=== PATIENT | male | born 1950 | race Caucasian/White ===

== ENCOUNTER → 2017-06-17 | Outpatient (CLI) | payer OTHER ==
--- NOTE | 2017-06-17 17:16 | PCVCIMAG ---
APPROVED REPORT Study performed: 06/17/2017 10:44:24 EXAM: Comprehensive 2D, Doppler, and color-flow Echocardiogram Patient Location: Echo lab Status: routine Other Information Study Quality: Adequate Indications Pre-Chemo CAD Aortic Stenosis. Hypertension, Dyspnea, CABG, 2D Dimensions IVSd: 7.96 (7-11mm)LVOT Diam: 20.49 (18-24mm) LVDd: 56.64 mm PWd: 7.91 (7-11mm) LVDs: 36.68 (25-40mm) Left Atrium: 35.01 (27-40mm) Aortic Root: 25.11 mm LV Single Plane 4CH: 63.63 % LV Single Plane 2CH: 64.85 %Nova's LVEF: 64.24 % Biplane EF: 64.5 % Volumes Left Atrial Volume (Systole) Single Plane 4CH: 80.76 mLSingle Plane 2CH: 67.42 mL LA ESV Index: 38.00 mL/m2 Aortic Valve AoV Peak Leighton.: 4.33 m/s AO Peak Gr.: 81.63 mmHgLVOT Max P.60 mmHg AO Mean Gr.: 40.80 mmHgLVOT Mean P.38 mmHg AO V2 Mean: 3.03 m/sLVOT Max V: 1.29 m/s AO V2 VTI: 112.93 cmLVOT Mean V: 0.86 m/s LORENZO (VTI): 1.02 [id number] V1 VTI: 34.95 cm LORENZO Vmax: 0.98 cm2 AI Vmax: 4.72 m/sSV (LVOT): 115.18 mL AI [place]: 3.84 m/s2 AI PHT: 360.71 ms Mitral Valve E/A Ratio: 1.2 MV Decel. Time: 308.75 ms MV E Max Leighton.: 1.11 m/s MV A Leighton.: 0.93 m/s IVRT: 96.89 ms Pulmonary Valve PV Peak Leighton.: 0.94 m/sPV Peak Gr.: 3.53 mmHg Pulmonary Vein P Vein S: 0.58 m/sP Vein A: 0.31 m/s P Vein D: 0.63 m/sP Vein A Dur.: 179.9 msec P Vein S/D Ratio: 0.92 Tricuspid Valve TV Vmax: 0.80 m/s Left Ventricle Left ventricle is at the upper limits of normal. There is normal LV segmental wall motion. There is normal left ventricular wall thickness. Left ventricular systolic function is normal. The left ventricular ejection fraction is within the normal range. LVEF is 65%. The left ventricular diastolic function is normal. Right Ventricle The right ventricle is normal size. The right ventricular systolic function is normal. Atria The left atrium size is normal. The right atrium size is normal. Aortic Valve Aortic valve is trileaflet. Moderate aortic regurgitation. Severe aortic stenosis. Peak aortic valve gradient is 74mmHg and the mean gradient is 41mmHg. Calculated LORENZO by the continuity equation is _0.8-0.9cm2 Mitral Valve The mitral valve is normal in structure. Moderate mitral regurgitation. No evidence of mitral valve stenosis. Tricuspid Valve The tricuspid valve is normal in structure. Trace tricuspid regurgitation. Pulmonic Valve The pulmonary valve is normal in structure. There is no pulmonic valvular regurgitation. Great Vessels The aortic root is normal in size. The ascending aorta is normal in size. IVC is normal in size and collapses with >50% inspiration Pericardium There is no pericardial effusion. There is no pleural effusion. <Conclusion> Left ventricle is at the upper limits of normal. There is normal left ventricular wall thickness. LVEF is 65%. The left ventricular diastolic function is normal. The right ventricle is normal size. Severe aortic stenosis. Peak aortic valve gradient is 74mmHg and the mean gradient is 41mmHg. Calculated LORENZO by the continuity equation is _0.8-0.9cm2 Moderate mitral regurgitation. Trace tricuspid regurgitation. There is no pericardial effusion.
== END | disposition home or self-care (01) ==
LOC: PCVCIMAG 10:35
PROVIDERS: ATTEND Internal Medicine Cardiovascular Disease
DX: Z01.810 Encounter for preprocedural cardiovascular examination (principal); I08.3 Combined rheumatic disorders of mitral, aortic and tricuspid valves; I10 Essential (primary) hypertension; E78.5 Hyperlipidemia, unspecified; E78.00 Pure hypercholesterolemia, unspecified; I25.10 Atherosclerotic heart disease of native coronary artery without angina pectoris; E11.8 Type 2 diabetes mellitus with unspecified complications; Z82.49 Family history of ischemic heart disease and other diseases of the circulatory system; Z95.1 Presence of aortocoronary bypass graft; Z72.0 Tobacco use; Z79.82 Long term (current) use of aspirin; Z79.84 Long term (current) use of oral hypoglycemic drugs; Z88.2 Allergy status to sulfonamides; Z88.8 Allergy status to other drugs, medicaments and biological substances
CPT/HCPCS: 80061; 93005; 93306; G0463

== ENCOUNTER → 2017-08-05 | Outpatient (CLI) | payer OTHER ==
--- NOTE | 2017-08-05 10:30 | PCVCIMAG ---
APPROVED REPORT Study performed: 08/05/2017 09:02:12 EXAM: Comprehensive 2D, Doppler, and color-flow Echocardiogram Patient Location: [facility] Status: routine BSA: 1.95 HR: 58 bpmBP: 125/41 mmHg Rhythm: NSR Other Information Study Quality: Good Indications Aortic Valve Disease Echo Enhancing Agent Indication: Rule out Shunt Agent(s) / Amount(s) Used: Agitated Saline 10 cc Comments: Negative contrast study for shunt flow. Procedure After obtaining informed consent, patient underwent transesophageal echo in the [employer]. Type of Sedation : Conscious Sedation Sedation was administered by Jenna Aquino RN. Sedation was achieved intravenously with: Versed (2mg) Transesophageal probe was inserted and advanced into esophagus without difficulty by Leonel Romero MD. Echo enhancement indication: R/O Septal defect. Echo enhancement agent administered: Agitated Saline The JULIANNE was performed without complications. Throughout the procedure, the blood pressure, pulse oximetry, cardiac rhythm, and rate were monitored. The patient tolerated the procedure without adverse effects. Recovery from conscious sedation was uneventful and vital signs were stable. Left Ventricle The left ventricle is normal size. There is normal LV segmental wall motion. There is normal left ventricular wall thickness. The left ventricular systolic function is normal. The left ventricular ejection fraction is within the normal range. LVEF is 55%. Right Ventricle The right ventricle is normal size. The right ventricular systolic function is normal. Atria Left atrium is moderately dilated. No masses or clots in the left atrium or left atrial appendage No shunting by contrast bubble injection The right atrium size is normal. Aortic Valve Aortic valve is trileaflet. Moderate aortic valve calcification Severe aortic regurgitation. Calculated aortic valve area is 0.9 cm2 with maximum pressure gradient of 74 mmHg and mean pressure gradient of 41 mmHg. Mitral Valve There is premature closure of the mitral valve consistent with severe aortic regurgitation. Mild mitral annular calcification Mild to moderate mitral regurgitation. Tricuspid Valve Moderate tricuspid regurgitation. Great Vessels The aortic root is normal in size. The ascending aorta is normal in size. Mild, scattered atherosclerosis Pericardium There is no pericardial effusion. There is no pleural effusion. <Conclusion> The left ventricular systolic function is normal. LVEF is 55%. Normal LV segmental wall motion. Left atrium is moderately dilated. No masses or clots in the left atrium or left atrial appendage No shunting by contrast bubble injection Aortic valve is trileaflet. Moderate leaflet calcification Calculated aortic valve area is 0.9 cm2 with maximum pressure gradient of 74 mmHg and mean pressure gradient of 41 mmHg (TTE). Severe aortic regurgitation. There is premature closure of the mitral valve consistent with severe aortic regurgitation. Mild mitral annular calcification. Mild to moderate mitral regurgitation. The ascending aorta is normal in size. Mild, scattered atherosclerosis There is no pericardial effusion.
== END | disposition home or self-care (01) ==
LOC: PCVCINTER 08:07
PROVIDERS: ATTEND Internal Medicine
DX: I08.3 Combined rheumatic disorders of mitral, aortic and tricuspid valves (principal); E78.5 Hyperlipidemia, unspecified; E11.9 Type 2 diabetes mellitus without complications; Z79.4 Long term (current) use of insulin; I10 Essential (primary) hypertension; E78.00 Pure hypercholesterolemia, unspecified
CPT/HCPCS: 93312; 93325; 99152

== ENCOUNTER → 2017-09-01 | Outpatient (CLI) | payer OTHER ==
[~2017-09-01] MED LIST: DIAZEPAM 10 MG TABLET. ONE; IOHEXOL 350 MG/ML 100 ML VIAL. ONE; IOHEXOL 350 MG/ML 50 ML VIAL. ONE; IV NORMAL SALINE 500ML BAG 500 ML ONE; LIDOCAINE 1% Multi-Dose 20 ML VIAL. ONE; MIDAZOLAM HCL/PF 2 MG/2 ML VIAL. ONE; fentaNYL PF VIAL 100 MCG/2 ML VIAL ONE
--- NOTE | 2017-09-01 11:40 | PCVCIMAG ---
EXAM: BILATERAL CAROTID DUPLEX INDICATION: Carotid Occlusive Disease. FINDINGS: Doppler Measurements (centimeters per second): RIGHT: Peak CCA-62, Peak ECA-109, Diastolic ICA-28, Peak ICA-101, ICA/CCA Ratio-1.6. LEFT: Peak CCA-94, Peak ECA-60, Diastolic ICA-27, Peak ICA-97, ICA/CCA Ratio-1.0. RIGHT CAROTID: The carotid bulb has moderate plaque. The proximal internal carotid artery shows <40% stenosis. The common carotid artery shows no significant stenosis. The external carotid artery shows no significant stenosis. LEFT CAROTID: The carotid bulb has moderate plaque. The proximal internal carotid artery shows <40% stenosis. The common carotid artery shows no significant stenosis. The external carotid artery shows no significant stenosis. Antegrade flow in both vertebral arteries. IMPRESSION: <40% stenosis of the right internal carotid artery with moderate plaque. <40% stenosis of the left internal carotid artery with moderate plaque. LOC:[place] [id number]
== END | disposition home or self-care (01) ==
LOC: PCVCINTER 06:59
PROVIDERS: ATTEND Internal Medicine Cardiovascular Disease
DX: I65.23 Occlusion and stenosis of bilateral carotid arteries (principal); I35.0 Nonrheumatic aortic (valve) stenosis; E78.5 Hyperlipidemia, unspecified; E11.9 Type 2 diabetes mellitus without complications; I10 Essential (primary) hypertension
CPT/HCPCS: 93461; 93567; 93880; 99152; 99153; C1751; C1760; C1769; C1894; J1644; J7040; Q9967; J2250; J3010